=== PATIENT | male | born 1950 | race American Indian/Alaskan Native ===

== ENCOUNTER 2017-07-08 05:51 | Inpatient (IN) | payer MEDICARE ==
--- NOTE | 2017-07-02 12:49 | Anesthesia Consultation ---
Anesthesia Consult and Med Hx Date of service: 07/02/17 - Airway Anesthetic Teeth Evaluation: Poor ROM Head & Neck: Adequate Mental/Hyoid Distance: Adequate Mallampati Class: Class I Intubation Access Assessment: Good - Pulmonary Exam CTA: Yes - Cardiac Exam Cardiac Exam: RRR - Pre-Operative Health Status ASA Pre-Surgery Classification: ASA3 Proposed Anesthetic Plan: General Nerve Block: TAP - Pulmonary Hx Smoking: Yes (1 PPD X 40 YRS) Hx Sleep Apnea: No (RIVAS PRE SCREEN HIGH RISK) - Cardiovascular System Hx Hypertension: Yes (X 2 YRS) Hx Angina: Yes (OCC) - Other Systems Hx Alcohol Use: Yes (HX PAST ABUSE) Hx Cancer: Yes (prostate)
[2017-07-02 12:53] LABS: Basophils % (Auto) 0.8 % (0.0-1.8); Eosinophils % (Auto) 2.6 % (0.0-4.3); Hematocrit 39.2 % (35.5-45.6); Hemoglobin 13.4 gm/dl (11.8-15.2); Mean Corpuscular HGB Conc 34 % (32-34); Mean Corpuscular Hemoglobin 30 pg (28-32); Mean Corpuscular Volume 86 fl (84-94); Platelet Count 130 K/mm3 (140-440); Red Blood Count 4.53 M/mm3 (3.65-5.03); Red Cell Distribution Width 15.1 % (13.2-15.2); White Blood Count 4.3 K/mm3 (4.5-11.0)
[2017-07-02 13:02] LABS: INR 0.91 (0.87-1.13)
[2017-07-02 13:03] LABS: Partial Thromboplastin Time 26.5 Sec. (24.2-36.6)
[2017-07-02 13:12] LABS: Alanine Aminotransferase 6 units/L (7-56); Albumin/Globulin Ratio 1.1 %; Alkaline Phosphatase 68 units/L (35-129); Anion Gap 14 mmol/L; BUN/Creatinine Ratio 14; Blood Urea Nitrogen 14 mg/dL (9-20); Calcium 9.7 mg/dL (8.4-10.2); Carbon Dioxide 29 mmol/L (22-30); Chloride 101.8 mmol/L (98-107); Glucose 96 mg/dL (75-100); Potassium 4.1 mmol/L (3.6-5.0); Sodium 141 mmol/L (137-145); Total Protein 7.5 g/dL (6.3-8.2)
[~2017-07-08 05:51] MED LIST: ANCEF/STERILE WATER 2 GM/20 ML IV NR
[2017-07-08] MEDS ORDERED: SUBLIMAZE IV NR (06:00)
[2017-07-08] MEDS: NACL 0.9% 1000 ML 1,000 ML IV SCH ×3 (06:45→23:25)
[2017-07-08] MEDS ORDERED: NACL BACTERIOSTATIC INFILTRATI ONE (06:48)
[2017-07-08] MEDS ORDERED: PEPCID PO NR (07:00)
[2017-07-08] MEDS ORDERED: NEURONTIN PO NR (07:00)
[2017-07-08] MEDS ORDERED: VERSED IV NR (07:00)
--- NOTE | 2017-07-08 07:21 | Anesthesia Day of Surgery ---
Anesthesia Day of Surgery - Day of Surgery Patient Examined: Yes Patient H&P Reviewed: Yes Patient is NPO: Yes
[2017-07-08] MEDS ORDERED: DIPRIVAN 10 MG/ML IV ONE (07:28)
[2017-07-08] MEDS ORDERED: ZEMURON IV ONE (07:28)
[2017-07-08] MEDS ORDERED: XYLOCAINE MPF 2% ONE (07:28)
[2017-07-08] MEDS ORDERED: DILAUDID IV PRN (07:30)
[2017-07-08] MEDS ORDERED: CLONIDINE 1,000 MCG/10 ML VIAL EP ONE (07:32)
[2017-07-08] MEDS ORDERED: DECADRON ONE ×2 (07:32→07:33)
[2017-07-08] MEDS ORDERED: XYLOCAINE 1% 20 mL ONE (07:32)
[2017-07-08] MEDS ORDERED: MARCAINE 0.5% 30 ML INFILTRATI ONE (07:32)
[2017-07-08] MEDS ORDERED: ZOFRAN IV PRN ×2 (08:00→11:30)
[2017-07-08] MEDS ORDERED: METHYLENE BLUE ONE (08:01)
[2017-07-08] MEDS ORDERED: NACL 0.9% 1000 ML 1,000 ML ONE ×2 (08:34→09:36)
[2017-07-08] MEDS ORDERED: THROMBIN (BOVINE) TP ONE ×2 (08:37→10:56)
[2017-07-08] MEDS ORDERED: CALCIUM CHLORIDE IV ONE ×2 (08:37→10:56)
[2017-07-08] MEDS ORDERED: ACD-A 500 ML IV ONE (08:37)
[2017-07-08] MEDS ORDERED: NEO SYNEPHRINE ONE (08:51)
[2017-07-08] MEDS ORDERED: NACL 0.9% 100 ML ONE (08:51)
[2017-07-08] MEDS ORDERED: ROBINUL ONE ×2 (09:34→09:49)
[2017-07-08] MEDS ORDERED: ePHEDrine SULFATE ONE (10:03)
[2017-07-08] MEDS ORDERED: ZOFRAN ONE (10:30)
[2017-07-08] MEDS ORDERED: NORCO 5/325 PO PRN (10:44)
--- NOTE | 2017-07-08 10:44 | Short Stay Summary ---
Short Stay Documentation Date of service: 07/08/17 - History H&P: obtained from office - Allergies and Medications Current Medications: Allergies No Known Allergies Allergy (Verified 07/01/17 10:28) Home Medications Medication Instructions Recorded Confirmed Last Taken Type Hydrochlorothiazide [HCTZ] 25 mg PO QDAY 07/01/17 07/08/17 07/07/17 History Lisinopril [Zestril] 20 mg PO QDAY 07/01/17 07/08/17 07/08/17 03:30 History Naproxen Sodium [Aleve] 220 mg PO PRN PRN 07/01/17 07/08/17 1 Month Ago History Active Medications Cefazolin Sodium (Ancef/Sterile Water 2 Gm/20 Ml) 2 gm IV PREOP NR Stop: 07/08/17 13:00 Celecoxib (Celebrex) 200 mg PO PREOP NR Stop: 07/08/17 23:00 Last Admin: 07/08/17 06:30 Dose: 200 mg Famotidine (Pepcid) 20 mg PO PREOP NR Stop: 07/08/17 23:00 Last Admin: 07/08/17 06:30 Dose: 20 mg Fentanyl (Sublimaze) 100 mcg IV ONCE NR Stop: 07/08/17 23:59 Last Admin: 07/08/17 07:40 Dose: 100 mcg Gabapentin (Neurontin) 300 mg PO PREOP NR Stop: 07/08/17 23:00 Last Admin: 07/08/17 06:30 Dose: 300 mg Hydromorphone HCl (Dilaudid) 0.5 mg IV Q10MIN PRN PRN Reason: Pain , Severe (7-10) Stop: 07/08/17 15:00 Sodium Chloride (Nacl 0.9% 1000 Ml) 1,000 mls @ 100 mls/hr IV DIRECT JAMES Last Admin: 07/08/17 06:45 Dose: 100 mls/hr Midazolam HCl (Versed) 2 mg IV PREOP NR Stop: 07/08/17 23:00 Last Admin: 07/08/17 07:38 Dose: 2 mg Ondansetron HCl (Zofran) 4 mg IV ONCE PRN PRN Reason: Nausea And Vomiting Stop: 07/08/17 16:00 - Brief post op/procedure progress note Date of procedure: 07/08/17 Pre-op diagnosis: prostate cancer Post-op diagnosis: same Procedure: robotic prostatectomy Anesthesia: MARITZAA Surgeon: KAREN GARCIA Crime Victim Specialist: ELIZABETH DALY Estimated blood loss: other (150cc) Pathology: list (prostate) Specimen disposition: to lab Condition: stable - Hospital course Hospital course: cipro,norco, & post op info on chart Dr. Chisholm on consult for medical mgmt looks good drain removed - Disposition Condition at discharge: Stable Disposition: DC-[id number] STILL A PATIENT Short Stay Discharge Plan Follow up with: RUSS HORVATH MD [Primary Care Provider] - 7 Days
[2017-07-08] MEDS ORDERED: ACD-A IV ONE (10:55)
[2017-07-08] MEDS ORDERED: NACL 0.9% IR ONE ×2 (10:55→10:56)
[2017-07-08] MEDS ORDERED: WATER FOR IRRIG STERILE IR ONE (10:55)
[2017-07-08] MEDS ORDERED: NACL 0.9% 1000 ML 1,000 ML IV SCH (11:00)
[2017-07-08] MEDS ORDERED: NARCAN 0.4 MG/1 ML IV PRN (11:30)
[2017-07-08] MEDS ORDERED: MORPHINE IV PRN (11:30)
--- NOTE | 2017-07-08 12:09 | Operative Report ---
PREOPERATIVE DIAGNOSIS: Prostate cancer, [place] 9, PSA 9.6. POSTOPERATIVE DIAGNOSIS: Prostate cancer, [place] 9, PSA 9.6. PROCEDURE: Robotic-assisted laparoscopic prostatectomy. SURGEON: Dr. Mahoney. SIGNWRITER: Von Webster. ANESTHESIA: General. ANESTHESIOLOGIST: Dr. Guzman. ESTIMATED BLOOD LOSS: 150 mL. FLUIDS: Crystalloid. COMPLICATIONS: No complications. INDICATIONS: This patient is a 67-year-old gentleman originally seen by Dr. Orantes in our office, but due to insurance issues, he required different hospital and physician. I saw him in the office, discussed options, written information was given. Bone scan and CAT scan negative for metastasis. He agreed to proceed with surgical intervention. DESCRIPTION OF PROCEDURE: The patient was taken to the operative suite, placed in a supine position. After adequate general anesthesia, he was prepped and draped in a sterile fashion. Tolliver catheter was placed on the operative field. Cricket Webster was present throughout the case at the bedside to facilitate surgical dissection. Pubic symphysis was marked. A 15 cm cephalad to pubic symphysis was marked and a small incision was made. This was actually an infraumbilical incision. Towel clips were placed. Veress needle was used for drop test, which was negative. Opening pressure was 1 cm of water. Insufflation of the intra-abdominal cavity to 15 cm of water was performed without difficulty. The patient had a narrow pelvis. It was then measured again 15 cm cephalad to pubic symphysis at the level of the Veress needle, 8 cm lateral and then an additional 8 cm lateral was used for placement of the 8 mm robotic ports. A 0-degree lens was inserted into the abdominal cavity with no injury. The rest of the ports were placed under direct vision. There was a 10 mm port on the right side as well as a 5 mm helper ports. The patient was then placed in an exaggerated Trendelenburg position. No signs of metastases could be appreciated. Second arch was identified and scored. Dissection posterior to the prostate to the apex was performed without difficulty. Seminal vesicles and vas deferens were dissected out. Vas deferens was transected bilaterally. Next attention was taken anteriorly. Anterior abdominal wall was scored lateral to the lateral umbilical ligament, taken down to the pubic rami, which was exposed bilaterally. It was dissected across the midline and the bladder flap was dropped. The endopelvic fascia was opened bilaterally without difficulty. Control of the dorsal vein complex was obtained with 45 mm vascular stapler. Next, attention was taken to the bladder neck. Tolliver catheter was manipulated. Bladder neck was scored opening the anterior bladder neck exposing the Tolliver catheter without difficulty. A 2-0 Vicryl stitch was placed into the bladder neck. Tolliver catheter was deflated and used for anterior traction. Posterior bladder neck was taken down. Ureteral orifices could be appreciated and were uninjured. Seminal vesicles and vas deferens could be appreciated in the midline, were retracted anteriorly exposing the lateral pedicles which were controlled with a 45 mm vascular stapler bilaterally. The neurovascular bundle could not be appreciated. I did not plan on sparing the neurovascular bundles due to the [place] 9 Cores that was obtained at biopsy. down to the apex was performed without difficulty. Prostate was dissected free, placed in the EndoCatch bag without difficulty. Copious irrigation was performed. Adequate hemostasis achieved. Bladder neck was reconstructed to accommodate an 18-Pashto Tolliver catheter. Reconstruction was performed using 2-0 Vicryl at the 5 o'clock and 7 o'clock positions in an interrupted fashion without difficulty. Double armed V-Loc stitch was placed at the 6 o'clock position in the bladder neck corresponding aspect of the urethra, running stitch was performed bilaterally. A new Tolliver catheter was placed in the direct vision without difficulty. The balloon was inflated with 15 mL of sterile water. The bladder was irrigated clear. No clots. The anastomosis was cinched down. V-Loc stitch was actually placed at the pubic symphysis on the abdominal wall to aid incontinence. Copious irrigation was performed. Adequate hemostasis was achieved. Platelet-rich plasma was injected into the bladder neck as well as platelet-poor plasma. Adequate hemostasis again was confirmed. Gordon-Decker drain was brought up through the #2 port on the left side. All robotic ports were removed under direct vision. Robot was undocked. Attention was taken to the anterior abdominal wall. Midline incision was extended slightly to allow removal of the prostate without difficulty. 0 Vicryl [id number] was used to close the midline incision. All skin incisions were closed with 3-0 Vicryl in an interrupted fashion. The drain was secured with 2-0 silk in an interrupted fashion. Tolliver catheter site port was folded over and tied with 0 Vicryl in an interrupted fashion. The patient tolerated the procedure well and was extubated and taken to recovery room. He will be observed overnight, go home on Gabbie and Claudia. JOB# [id number] NIKOLAI/NTS
[2017-07-08 14:01] LABS: Hematocrit 40.8 % (35.5-45.6); Hemoglobin 13.2 gm/dl (11.8-15.2); Mean Corpuscular HGB Conc 32 % (32-34); Mean Corpuscular Hemoglobin 29 pg (28-32); Mean Corpuscular Volume 90 fl (84-94); Platelet Count 146 K/mm3 (140-440); Red Blood Count 4.55 M/mm3 (3.65-5.03); White Blood Count 9.2 K/mm3 (4.5-11.0)
[2017-07-08 14:10] LABS: Calcium 8.3 mg/dL (8.4-10.2); Chloride 104.1 mmol/L (98-107); Potassium 5.2 mmol/L (3.6-5.0)
[2017-07-08 15:05] LABS: Blastocytes % (Manual) 0 %
[2017-07-08 15:06] LABS: Basophils % (Manual) 0 % (0.0-1.8); Diff Status Complete; Eosinophils % (Manual) 0 % (0.0-4.3); Platelet Estimate Cons
[2017-07-08] MEDS: ANCEF/NS 1 GM/50 ML 1 GM/50 ML BAG IV SCH (15:29)
[2017-07-08] MEDS ORDERED: AMBIEN PO PRN (22:00)
--- NOTE | 2017-07-08 23:37 | Consultation ---
History of Present Illness - Reason for Consult Consult date: 07/08/17 Medical management Requesting physician: KAREN GARCIA - History of Present Illness S/p robotic Prostatectomy--Post op doing well. Past History Past Medical History: hypertension, other (Prostate cancer) Past Surgical History: Other (Robotic prostatectomy) Social history: lives with family Family history: hypertension Medications and Allergies Allergies Allergy/AdvReac Type Severity Reaction Status Date / Time No Known Allergies Allergy Verified 07/01/17 10:28 Home Medications Medication Instructions Recorded Confirmed Last Taken Type Hydrochlorothiazide [HCTZ] 25 mg PO QDAY 07/01/17 07/08/17 07/07/17 History Lisinopril [Zestril] 20 mg PO QDAY 07/01/17 07/08/17 07/08/17 03:30 History Naproxen Sodium [Aleve] 220 mg PO PRN PRN 07/01/17 07/08/17 1 Month Ago History Active Meds: Active Medications Acetaminophen/Hydrocodone Bitart ([place] 5/325) 2 each PO Q4H PRN PRN Reason: Pain, Moderate (4-6) Last Admin: 07/08/17 23:23 Dose: 2 each Fentanyl (Sublimaze) 100 mcg IV ONCE NR Stop: 07/08/17 23:59 Last Admin: 07/08/17 07:40 Dose: 100 mcg Hydrochlorothiazide (Hctz) 25 mg PO QDAY JAMES Sodium Chloride (Nacl 0.9% 1000 Ml) 1,000 mls @ 100 mls/hr IV DIRECT JAMES Last Admin: 07/08/17 23:25 Dose: 100 mls/hr Sodium Chloride (Nacl 0.9% 1000 Ml) 1,000 mls @ 100 mls/hr IV DIRECT JAMES Lisinopril (Zestril) 20 mg PO QDAY JAMES Morphine Sulfate (Morphine) 4 mg IV Q4H PRN PRN Reason: Pain , Severe (7-10) Naloxone HCl (Narcan 0.4 Mg/1 Ml) 0.1 mg IV Q2MIN PRN PRN Reason: Res Rate </= 8 or 02 SAT < 92% Ondansetron HCl (Zofran) 4 mg IV Q8H PRN PRN Reason: Nausea And Vomiting Zolpidem Tartrate (Ambien) 5 mg PO QHS PRN PRN Reason: Sleep Review of Systems All systems: negative Exam - Constitutional Vitals: Temp Pulse Resp BP Pulse Ox 97.5 F L 76 18 111/61 100 07/08/17 19:34 07/08/17 19:34 07/08/17 23:23 07/08/17 19:34 07/08/17 19:34 General appearance: Present: no acute distress, well-nourished - EENT Eyes: Present: PERRL ENT: hearing intact, clear oral mucosa - Neck Neck: Present: supple, normal ROM - Respiratory Respiratory effort: normal Respiratory: bilateral: CTA - Cardiovascular Heart rate: 80 Rhythm: regular Heart Sounds: Present: S1 & S2. Absent: rub, click - Extremities Extremities: no ischemia, pulses intact, pulses symmetrical, No edema Peripheral Pulses: within normal limits - Abdominal General gastrointestinal: Present: soft, non-tender, non-distended, normal bowel sounds Male genitourinary: Present: normal - Rectal Rectal Exam: deferred - Integumentary Integumentary: Present: clear, warm, dry - Musculoskeletal Musculoskeletal: gait normal, strength equal bilaterally - Psychiatric Psychiatric: appropriate mood/affect, intact judgment & insight - Neurologic Neurologic: CNII-XII intact, moves all extremities Results - Labs CBC & Chem 7: 07/08/17 13:24 07/08/17 13:24 Labs: Abnormal lab results 07/08/17 07/08/17 Range/Units 13:24 13:24 Lymphocytes % (Manual) 7.0 L (13.4-35.0) % Seg Neutrophils # Man 8.5 H (1.8-7.7) K/mm3 Lymphocytes # (Manual) 0.6 L (1.2-5.4) K/mm3 Potassium 5.2 H (3.6-5.0) mmol/L BUN 31 H (9-20) mg/dL Creatinine 2.4 H (0.8-1.5) mg/dL Glucose 141 H (75-100) mg/dL Calcium 8.3 L (8.4-10.2) mg/dL Assessment and Plan - Patient Problems (1) HTN (hypertension) Current Visit: Yes Status: Chronic Plan to address problem: Cont Lisinopril.Hold Hctz b/c of increasing Creatinine from 1.0 to 2.4 (2) ANTONELLA (acute kidney injury) Current Visit: Yes Status: Acute Plan to address problem: Sec to ATN/volume depletion.IV Fluids for now.Check BMP in AM Stop HCTZ. (3) Hyperkalemia Current Visit: Yes Status: Acute Plan to address problem: Mild -Calcium Gluconate IV given Check BMP in AM (4) Pain management Current Visit: Yes Status: Acute Plan to address problem: Postop pain management adeqate (5) DVT prophylaxis Current Visit: Yes Status: Acute Plan to address problem: On SCD's
[2017-07-09] MEDS: ANCEF/NS 1 GM/50 ML 1 GM/50 ML BAG IV SCH (00:37)
[2017-07-09] MEDS ORDERED: ANCEF/NS 1 GM/50 ML 1 GM/50 ML BAG IV SCH (01:00)
[2017-07-09 05:00] LABS: Basophils % (Auto) 0.1 % (0.0-1.8); Hematocrit 32.7 % (35.5-45.6); Hemoglobin 10.6 gm/dl (11.8-15.2); Mean Corpuscular HGB Conc 33 % (32-34); Mean Corpuscular Hemoglobin 29 pg (28-32); Mean Corpuscular Volume 89 fl (84-94); Platelet Count 121 K/mm3 (140-440); Red Blood Count 3.67 M/mm3 (3.65-5.03); Red Cell Distribution Width 14.6 % (13.2-15.2); White Blood Count 7.9 K/mm3 (4.5-11.0)
[2017-07-09 05:27] LABS: Calcium 7.6 mg/dL (8.4-10.2); Chloride 102.6 mmol/L (98-107); Potassium 5.3 mmol/L (3.6-5.0)
[2017-07-09] MEDS ORDERED: KIONEX PO ONE (06:12)
[2017-07-09] MEDS ORDERED: ZESTRIL PO SCH (10:00)
[2017-07-09] MEDS ORDERED: HCTZ PO SCH (10:00)
--- NOTE | 2017-07-09 10:42 | Progress Note ---
Subjective Date of service: 07/09/17 Interval history: 1st POD after robotic prostatectomy Patient is in the bed, comfortable. Pain is very well controlled with pain meds. Ambulated well. No nausea or vomiting. No anesthesia complications. Being discharged by the surgeon. Objective - Constitutional Vitals: Vital Signs - 12hr 07/08/17 07/09/17 07/09/17 23:23 00:09 04:31 Temperature 97.8 F 97.4 F L Pulse Rate 65 63 Respiratory 18 20 20 Rate Blood Pressure 85/46 99/59 O2 Sat by Pulse 100 100 Oximetry 07/09/17 07:13 Temperature 97.8 F Pulse Rate 72 Respiratory 20 Rate Blood Pressure 105/58 O2 Sat by Pulse 100 Oximetry - Labs CBC & Chem 7: 07/09/17 04:17 07/09/17 04:17 Labs: Abnormal lab results 07/08/17 07/08/17 07/09/17 Range/Units 13:24 13:24 04:17 Hgb 10.6 L (11.8-15.2) gm/dl Hct 32.7 L D (35.5-45.6) % Plt Count 121 L (140-440) K/mm3 Lymph % (Auto) 11.6 L (13.4-35.0) % Lymph # 0.9 L (1.2-5.4) K/mm3 Seg Neutrophils % 82.3 H (40.0-70.0) % Lymphocytes % (Manual) 7.0 L (13.4-35.0) % Seg Neutrophils # Man 8.5 H (1.8-7.7) K/mm3 Lymphocytes # (Manual) 0.6 L (1.2-5.4) K/mm3 Sodium (137-145) mmol/L Potassium 5.2 H (3.6-5.0) mmol/L Carbon Dioxide (22-30) mmol/L BUN 31 H (9-20) mg/dL Creatinine 2.4 H (0.8-1.5) mg/dL Glucose 141 H (75-100) mg/dL Calcium 8.3 L (8.4-10.2) mg/dL 07/09/17 Range/Units 04:17 Hgb (11.8-15.2) gm/dl Hct (35.5-45.6) % Plt Count (140-440) K/mm3 Lymph % (Auto) (13.4-35.0) % Lymph # (1.2-5.4) K/mm3 Seg Neutrophils % (40.0-70.0) % Lymphocytes % (Manual) (13.4-35.0) % Seg Neutrophils # Man (1.8-7.7) K/mm3 Lymphocytes # (Manual) (1.2-5.4) K/mm3 Sodium 134 L (137-145) mmol/L Potassium 5.3 H (3.6-5.0) mmol/L Carbon Dioxide 18 L (22-30) mmol/L BUN 36 H (9-20) mg/dL Creatinine 2.0 H (0.8-1.5) mg/dL Glucose 139 H (75-100) mg/dL Calcium 7.6 L (8.4-10.2) mg/dL
[2017-07-09 11:38] VITALS: BP 128/65
== END 2017-07-09 14:38 | disposition home health service (06) | DRG 707 ==
LOC: OR 05:51 → 3B-SURG 10:55
PROVIDERS: ADMIT Urology; ATTEND Urology
PROC: 0VT04ZZ Resection of Prostate, Percutaneous Endoscopic Approach (ICD-10-PCS; principal; 2017-07-08)
PROC: 8E0W8CZ Robotic Assisted Procedure of Trunk Region, Via Natural or Artificial Opening Endoscopic (ICD-10-PCS; 2017-07-08)
PROC: 0TQC4ZZ Repair Bladder Neck, Percutaneous Endoscopic Approach (ICD-10-PCS; 2017-07-08)
DX: C61 Malignant neoplasm of prostate (principal); N17.0 Acute kidney failure with tubular necrosis; E87.5 Hyperkalemia; I10 Essential (primary) hypertension; F17.210 Nicotine dependence, cigarettes, uncomplicated; Z79.899 Other long term (current) drug therapy; Z82.49 Family history of ischemic heart disease and other diseases of the circulatory system
CPT/HCPCS: 36415; 64450; 80048; 80053; 85007; 85025; 85610; 85730; 86850; 86900; 86901; 88309; 94760; 99406; A4217; J0690; J0735; J1100; J1170; J2250; J2370; J2405; J2704; J3010; J7030; Q9968

== ENCOUNTER 2017-07-10 01:36 | Emergency (ER) | payer MEDICARE ==
[2017-07-10 02:26] LABS: Basophils % (Auto) 0.3 % (0.0-1.8); Hemoglobin 11.8 gm/dl (11.8-15.2); Mean Corpuscular HGB Conc 34 % (32-34); Mean Corpuscular Hemoglobin 29 pg (28-32); Mean Corpuscular Volume 87 fl (84-94); Platelet Count 123 K/mm3 (140-440); Red Blood Count 4.03 M/mm3 (3.65-5.03); Red Cell Distribution Width 14.8 % (13.2-15.2); White Blood Count 10.2 K/mm3 (4.5-11.0)
[2017-07-10 02:59] LABS: Alanine Aminotransferase 8 units/L (7-56); Albumin 3.6 g/dL (3.9-5); Alkaline Phosphatase 54 units/L (35-129); BUN/Creatinine Ratio 26; Blood Urea Nitrogen 31 mg/dL (9-20); Calcium 8.9 mg/dL (8.4-10.2); Carbon Dioxide 21 mmol/L (22-30); Glucose 105 mg/dL (75-100); Lipase 32 units/L (13-60); Total Protein 7.2 g/dL (6.3-8.2)
[2017-07-10 03:00] LABS: Anion Gap 19 mmol/L; Potassium 4.4 mmol/L (3.6-5.0); Sodium 139 mmol/L (137-145)
--- NOTE | 2017-07-10 07:15 | XRay Report ---
Chest 2 views: History: Shortness of breath. Findings: Normal cardiomediastinal silhouette. Trachea is midline. No consolidation, pneumothorax or pleural effusion. Impression: No acute cardiopulmonary findings.
[2017-07-10 08:46] VITALS: BP 164/80
== END 2017-07-10 09:46 | disposition left against medical advice (07) ==
LOC: ED 01:36
DX: R42 Dizziness and giddiness (principal); Z53.21 Procedure and treatment not carried out due to patient leaving prior to being seen by health care provider
CPT/HCPCS: 36415; 71020; 80053; 83690; 84484; 85025; 93005; 93010